=== PATIENT | female | born 1990 | race Caucasian/White ===

== ENCOUNTER 2017-01-12 09:16 | Emergency (ER) | payer OTHER ==
[~2017-01-12] VITALS: Ht 149.9 cm; Wt 68.0 kg
[2017-01-12 11:23] VITALS: BP 122/85
== END 2017-01-12 11:23 | disposition home or self-care (01) ==
LOC: ED 09:16
DX: G43.909 Migraine, unspecified, not intractable, without status migrainosus (principal)
CPT/HCPCS: J1885; J3010; Q0162